=== PATIENT | female | born 1980 | race Two or more races ===

== ENCOUNTER → 2024-09-01 | Outpatient (CLI) | payer MEDICAID, SELFPAY ==
--- NOTE | 2024-09-01 10:45 | XR_ITS ---
Examination: Diagnostic digital mammography, bilateral Computer aided detection 3-D breast Tomosynthesis, bilateral Date and time of exam: September 01, 2024 1023 hours INDICATIONS: Mammogram January 21, 2024 focal asymmetry outer right breast, focal asymmetry posterior outer left breast Technique: Nonmagnified MLO, CC views of the breasts to been obtained, reconstructed from 3-D Tomosynthesis images. R2 computer aided detection program utilized for evaluation of suspicious masses and/or abnormal calcifications. 3-D Tomosynthesis images obtained. Findings: Scattered areas of fibroglandular density Benign calcifications 14 mm asymmetry upper outer left breast mid depth Impression: BI-RADS Category 0: Incomplete: Need additional imaging evaluation 14 mm focal asymmetry upper outer left breast mid depth, recommend follow-up spot tomographic views Recommend bilateral breast sonography follow-up to compare with March 01, 2024 exam.
== END | disposition home or self-care (01) ==
LOC: CDIM 10:18
PROVIDERS: PCP Nurse Practitioner Family; Referring Provider Obstetrics & Gynecology; Visit Provider Obstetrics & Gynecology
DX: R92.8 Other abnormal and inconclusive findings on diagnostic imaging of breast (principal); N64.89 Other specified disorders of breast
CPT/HCPCS: 77062; 77066; G0279

== ENCOUNTER → 2024-09-30 | Outpatient (CLI) | payer MEDICAID, SELFPAY ==
--- NOTE | 2024-09-30 14:00 | XR_ITS ---
Examination: Breast ultrasound, unilateral, left complete Date and time of exam: September 30, 2024 1421 hours INDICATIONS: Mammogram September 01, 2024 14 mm focal asymmetry upper outer left breast mid depth Technique: Real-time bowen scale ultrasonographic imaging performed left breast including all 4 quadrants as well as nipple retroareolar and axillary region. Findings: 1:00 oval mass circumscribed 10 by 4 x 4 millimeter IMPRESSION: BI-RADS Category 3: Probably benign findings One additional 6 month left breast mammogram follow-up is needed to document stability of 1:00 nodule described above
== END | disposition home or self-care (01) ==
LOC: CDIM 13:46
PROVIDERS: PCP Nurse Practitioner Family; Referring Provider Obstetrics & Gynecology; Visit Provider Obstetrics & Gynecology
DX: R92.332 Mammographic heterogeneous density, left breast (principal); N63.21 Unspecified lump in the left breast, upper outer quadrant
CPT/HCPCS: 76641

== ENCOUNTER 2024-10-11 00:42 | Emergency (ER) | payer MEDICAID, SELFPAY ==
[2024-10-11 00:42] VITALS: BMI 31.8
--- NOTE | 2024-10-11 00:45 | EKG_ITS ---
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1980 Requested By: ED Temporary Provider Order Number: [id number] Reading MD: ED Temporary Provider Measurements Intervals Melissa Rate: 85 P: 15 NM: 205 QRS: -3 QRSD: 86 T: 32 QT: 369 QTc: 441 Interpretive Statements SINUS RHYTHM LOW QRS VOLTAGE IN PRECORDIAL LEADS [QRS DEFLECTION < 1.0 mV IN CHEST LEADS] POSSIBLE ANTERIOR MYOCARDIAL INFARCTION , PROBABLY OLD [30 ms Q WAVE IN V3/V4, OR R < 0.2 mV IN V4] Compared to ECG 11/28/2023 21:21:10 Low QRS voltage now present First degree AV block no longer present Myocardial infarct finding still present /store/S0/[id number]/ecg/[id number].pdf
[2024-10-11 00:49] VITALS: BP 147/94; PULSE 89; RESP 20; TEMP 36.6; O2SAT 97
--- NOTE | 2024-10-11 01:11 | PD.EDCHEST ---
ED Chest Pain RME/HPI General Chief Complaint: Chest Pain Stated Complaint: CHEST PRESSURE /LT ARM TINGLING Time Seen by Provider: 10/11/24 00:46 Arrival date/time: 10/11/24 00:42 This is a 44-year-old female that comes in with complaints of chest pain that comes and goes and started today. Patient had this chest pain before and was previously worked up and it was nothing. Patient reports that she has been under a lot of stress recently. Patient complains of anxiety as well. Patient has pain to palpation to right anterior mid chest. Patient denies fever, cough, sob, n/v, dizziness or syncope reported. Related Data Home Medications ?Medication ?Instructions ?Recorded ?Confirmed No Known Home Medications 02/24/22 02/24/22 Allergies Allergy/AdvReac Type Severity Reaction Status Date / Time No Known Allergies Allergy Verified 02/24/22 02:31 Review of Systems Review of Systems Systems Reviewed: All systems reviewed, normal except as documented Past Medical History Social History SMOKING STATUS: Never smoker SUBSTANCE USE: does not use ALCOHOL: Never Past Medical History Comments PMH COMMENT: obesity ED Exam General General appearance: Present alert and in no apparent distress Head Head exam: Present atraumatic Eye Eye exam: Present normal appearance, PERRL and EOMI ENT ENT exam: Present normal exam, normal oropharynx and mucous membranes moist Neck Neck exam: Present normal inspection, full ROM and trachea midline Chest Chest inspection: Present normal inspection and symmetric chest wall rise Respiratory Respiratory exam: Present normal lung sounds bilaterally Cardiovascular Cardiovascular exam: Present regular rate, normal rhythm and normal heart sounds Abdominal Exam Abdominal exam: Present soft Extremities Exam Extremities exam: Present normal inspection and full ROM Back Exam Back exam: Present normal inspection and full ROM Neurological Exam Neurological exam: Present alert, oriented X3 and CN II-XII intact Psychiatric Psychiatric exam: Present normal affect and normal mood Skin Skin exam: Present warm, dry, intact and normal color Course Quality Measures none Orders Category Date Time Status EKG (ED ONLY) *Do not use* NOW Care 10/11/24 00:45 Completed EKG (ED Only) Stat Exams 10/11/24 00:45 Draft Acetaminophen Tab [Tylenol ES Tab] Med 10/11/24 01:09 Discontinued 1,000 mg PO X1 ONE LORazepam [Ativan] Med 10/11/24 01:09 Discontinued 1 mg PO X1 ONE Vital Signs Vital signs: Vital Signs Temperature 97.9 F 10/11/24 00:49 Pulse Rate 89 10/11/24 00:49 Respiratory Rate 20 10/11/24 00:49 Blood Pressure 147/94 H 10/11/24 00:49 Pulse Oximetry (%) 97 10/11/24 00:49 Oxygen Delivery Method Room Air 10/11/24 00:49 Procedures -ED EKG Interpretation #1: Date of EK10/11/24 Time of EK:54 Rate: 85 Interpretation: Interpreted by me (sinus rhythm ) EKG Impression: No ectopy, Normal QRS and Normal intervals Chest Pain MDM Narrative MDM Narrative:: Pt reports she is having alot of stress recently. I spoke to patient at length. I told her to follow up with primary provider in 1-2 days. Come back to ED if symptoms change or worsen. Pt given a dose of ativan for anxiety Patient data External records reviewed:: [facility] previous records Clinical information provided by:: patient Social determinants that could affect healthcare access:: none Patient has the following chronic illnesses:: none How is presenting disease/condition affected by chronic disease/condition?: no chronic disease Evaluation data The following diagnostics were reviewed and interpreted by me:: EKG tracing(s) and other (specify) Lab and/or radiology exams considered but not ordered:: none Interpretation Summary: see note Medications / Prescriptions Medications or Prescriptions considered but not ordered:: none Medication administrations:: Medication Administration History Discontinued Medications Acetaminophen (Acetaminophen 500 Mg Tablet) 1,000 mg PO X1 ONE Stop: 10/11/24 01:10 Last Admin: 10/11/24 01:17 Dose: 1,000 mg Documented By: DEREK Lorazepam (Lorazepam 0.5 Mg Tablet) 1 mg PO X1 ONE Stop: 10/11/24 01:10 Last Admin: 10/11/24 01:17 Dose: 1 mg Documented By: DEREK see [facility] Consultations Consultation(s) initiated? (list below): No Diagnosis Most likely diagnosis given after review of the tests above:: anxiety Admission Indicated Admission indicated?: not indicated Admission Request Was there a request for admission?: No Disposition Plan Disposition Plan: Discharge Discharge Attestation Discharge Attestation: The patient and all family members were given an opportunity to ask questions and understood the discharge instructions. Discharge instructions specifically effects, indications for sooner follow up or return to the emergency department, and the expected course of current diagnosis. Patient condition: Stable Discharge Plan Plan Patient Disposition: HOME (Self Care) Patient condition on transfer: Stable Prescriptions/Referrals Prescriptions/Med Rec: No Action No Known Home Medications Referrals: Temporary Provider,ED [Physician] - In 1 week Problem List Clinical Impression: Anxiety, Chest pain Patient/Caregiver Discharge Instructions Discharge Activity: activity as tolerated Education Materials: ED Anxiety Reaction Additional Instructions: Follow-up with primary provider 2 days. Come back to the emergency room if symptoms change or worsen. Print Language: Faroese Stand Alone Forms: Maryam Award Info., Patient Portal Info Letter PA/GERIATRIC NURSE ASSISTANT Supervising Physician PA/GERIATRIC NURSE ASSISTANT Supervising Physician: nydia
[2024-10-11] MEDS: LORazepam 0.5 MG TABLET 1 MG PO (01:17)
[2024-10-11] MEDS: ACETAMINOPHEN 500 MG TABLET 1000 MG PO (01:17)
[2024-10-11 02:21] VITALS: BP 135/76; PULSE 76; RESP 16; TEMP 36.7; O2SAT 99
== END 2024-10-11 02:22 | disposition home or self-care (01) ==
LOC: SERX 01:30
PROVIDERS: Emergency Provider Emergency Medicine; PCP Nurse Practitioner Family
DX: F41.9 Anxiety disorder, unspecified (principal); R07.9 Chest pain, unspecified
CPT/HCPCS: 93005; 99283; A9270

== ENCOUNTER → 2024-11-16 | Outpatient (CLI) | payer MEDICAID, SELFPAY ==
--- NOTE | 2024-11-16 | XR_ITS ---
Examination: MRI left, without contrast Date and time of exam: November 14, 2024 0707 hrs. Indications: Ankle pain especially plantar surface of the ankle joint locking beginning February 2023 Technique: Multiple axial sagittal and coronal images of the left ankle have been obtained with the Siemens high-resolution 1.5 Mandie MRI scanner. Images obtained include T2-weighted fat-suppressed sagittal sections, TR 3500, TE 46, T2 weighted coronal fat suppressed images, TR 3050, TE 84, T2-weighted transverse fat suppressed images, TR 3260, TE 63, proton density transverse images, TR 4720 TE 46, and T1 weighted coronal images, TR 560, TE 13. Findings: Mild thickening of the Achilles tendon Significant plantar fasciitis, marked thickening of the plantar fascia at its calcaneal insertion with surrounding edema No bone marrow contusion marrow edema occult fracture or avascular necrosis Negative for sinus Tarsi syndrome Nonspecific edema adjacent to the distal medial shaft of the tibia No cortical bone destruction involving the tibia Anterior posterior inferior tibiofibular and talofibular ligaments intact Mild tendinitis posterior tibial flexor digitorum tendons Extensor tendons intact Impression: Marked plantar fasciitis Mild tendinitis posterior tibial flexor digitorum tendons
--- NOTE | 2024-11-16 | XR_ITS ---
Examination: MRI right ankle, without contrast Date and time of exam: November 16, 2024 at 0707 hrs. Indications: Right ankle pain beginning February 2023 Technique: Multiple axial sagittal and coronal images of the right ankle have been obtained with the Siemens high-resolution 1.5 Mandie MRI scanner. Images obtained include T2-weighted fat-suppressed sagittal sections, TR 3500, TE 46, T2 weighted coronal fat suppressed images, TR 3050, TE 84, T2-weighted transverse fat suppressed images, TR 3260, TE 63, proton density transverse images, TR 4720 TE 46, and T1 weighted coronal images, TR 560, TE 13. Findings: Mild biconvex thickening of the Achilles tendon Mild plantar fasciitis No occult fracture bone contusion marrow edema or avascular necrosis Negative for sinus Tarsi syndrome Edema adjacent to the distal medial tibial shaft without cortical bone destruction involving the tibia Anterior posterior inferior tibiofibular ligaments intact Talar fibular ligaments intact Tendinitis involving posterior tibial and flexor digitorum tendons Extensor tendons intact Fibular talar ligament intact Fibular calcaneal ligament intact Impression: Mild Achilles tendinosis Mild plantar fasciitis Nonspecific edema in the soft tissue adjacent to the distal medial tibial shaft with no cortical bone destruction involving the tibia Tendinitis posterior tibial and flexor digitorum tendons
== END | disposition home or self-care (01) ==
PROVIDERS: PCP Nurse Practitioner Family; Referring Provider Podiatrist; Visit Provider Podiatrist
DX: M72.2 Plantar fascial fibromatosis (principal); M79.671 Pain in right foot; M79.672 Pain in left foot; M25.471 Effusion, right ankle; M76.821 Posterior tibial tendinitis, right leg; M76.822 Posterior tibial tendinitis, left leg
CPT/HCPCS: 73721

== ENCOUNTER → 2025-03-17 | Outpatient (CLI) | payer MEDICAID, SELFPAY ==
--- NOTE | 2025-03-17 08:15 | XR_ITS ---
Examination: Diagnostic digital mammography, unilateral, left Computer aided detection 3-D breast Tomosynthesis, unilateral Date and time of exam: March 17, 2025, 0802 hours INDICATIONS: Mammogram September 01, 2024 14 mm focal asymmetry upper outer left breast Technique: Nonmagnified MLO, CC views of the left breast have been obtained, reconstructed from 3-D Tomosynthesis images. R2 computer aided detection program utilized for evaluation of suspicious masses and/or abnormal calcifications. 3-D Tomosynthesis images obtained. Findings: Scattered areas of fibroglandular density. Nodule upper outer left breast is confirmed on the spot compression views, measuring on this study 13 mm Impression: BI-RADS category 0: Incomplete: Need additional imaging evaluation Recommend repeat left breast sonography to assess the nodule described on the current study upper outer left breast
== END | disposition home or self-care (01) ==
LOC: CDIM 07:54
PROVIDERS: Referring Provider Obstetrics & Gynecology; Visit Provider Obstetrics & Gynecology
DX: R92.322 Mammographic fibroglandular density, left breast (principal); N63.21 Unspecified lump in the left breast, upper outer quadrant
CPT/HCPCS: 77061; 77065; G0279

== ENCOUNTER → 2025-04-08 | Outpatient (CLI) | payer MEDICAID, SELFPAY ==
--- NOTE | 2025-04-08 15:15 | XR_ITS ---
Examination: Breast ultrasound, unilateral, left Date and time of exam: April 08, 2025 1501 hours INDICATIONS: Mammogram March 17, 2025 13 mm nodule upper outer left breast Technique: Real-time bowen scale ultrasonographic imaging performed left breast including all 4 quadrants as well as nipple retroareolar and axillary region. Findings: 1:00 nodule circumscribed 11 x 8 mm IMPRESSION: BI-RADS Category 3: Probably benign findings Recommend 1 additional continued 6 month left breast sonogram follow-up to document stability 1:00 nodule described above
== END | disposition home or self-care (01) ==
PROVIDERS: PCP Nurse Practitioner Family; Referring Provider Obstetrics & Gynecology; Visit Provider Obstetrics & Gynecology
DX: N63.21 Unspecified lump in the left breast, upper outer quadrant (principal)
CPT/HCPCS: 76641